=== PATIENT | female | born 2000 | race Caucasian/White ===

== ENCOUNTER 2020-07-22 20:12 | Emergency (ER) | payer OTHER ==
[~2020-07-22] VITALS: Ht 152.4 cm; Wt 104.3 kg
[2020-07-22] MEDS ORDERED: NAPROSYN500 MG PO (21:18)
[2020-07-22 23:16] VITALS: BP 141/82
== END 2020-07-22 23:16 | disposition home or self-care (01) ==
LOC: ER 20:12
DX: M77.8 Other enthesopathies, not elsewhere classified (principal); Z90.89 Acquired absence of other organs; Z88.8 Allergy status to other drugs, medicaments and biological substances